=== PATIENT | female | born 1955 | race Caucasian/White ===

== ENCOUNTER 2016-08-30 08:36 | Observation (INO) | payer OTHER ==
[~2016-08-30] VITALS: Ht 157.5 cm; Wt 112.2 kg
[~2016-08-30 08:36] MED LIST: CALCIUM 500 +1 EACH PO; CLARITIN10 MG PO; COLACE100 MG PO; COUMADIN,JANTO7.5 MG PO; COUMADIN,JANTOV10 MG PO; COUMADIN1 MG PO; COUMADIN5 MG PO; COUMADIN6 MG PO; DUONEB 2.5-0.5 M3 ML AEROSOL; FLEXERIL10 MG PO; HYDROCODON-ACE1 EAC7 PO; KEFLEX500 MG PO; LIDOCAINE700 MG TD; LIPITOR20 MG PO; LOVENOX100 MG/1 M PO; METFORMIN HCL500 MG PO; MUPIROCIN22 GM TP; ONCE DAILY1 EACH PO; PRAVACHOL20 MG PO; PREDNISONE20 MG PO; PRILOSEC20 MG PO; PRINIVIL5 MG PO; PROTONIX40 MG PO; ROBITUSSIN AC,T10 ML PO; TESSALON200 MG PO; TRAMADOL HCL50 MG PO; TYLENOL EXTRA500 MG PO; TYLENOL WITH C1 EACH PO; Tylenol Regular Stre PO; VALIUM5 MG PO; VENTOLIN HFA18 GM IH; VICODIN 5-3001 EACH PO; ZITHROMAX Z-PA250 MG PO
[2016-08-30 10:14] LABS: EOSINOPHIL (%) 1.2 % (0-5); EOSINOPHIL COUNT 0.2 K/uL (0-0.3); HEMATOCRIT 41.5 % (36.0-46.0); IMMATURE GRANULOCYTE (%) 0.2 % (0.0-0.7); IMMATURE GRANULOCYTE COUNT 0.2 K/uL; LYMPHOCYTE COUNT 4.1 K/uL (1.0-2.8); MCH 28.7 PG (29.0-34.0); MCHC 32.8 G/DL (30.0-36.0); MCV 87.6 FL (83-99); MEAN PLAT.VOLUME 9.8 uM^3 (9.5-12.4); MONOCYTE (%) 9.7 % (3-12); MONOCYTE COUNT 1.2 K/uL (0-0.8); NEUTROPHIL (%) 56.2 % (45-76); NEUTROPHIL COUNT 7.2 K/uL (1.8-6.4); PLATELET COUNT 283 K/uL (156-360); RBC DIS.WIDTH-CV 14.7 % (11.8-14.6); RBC DIS.WIDTH-SD 46.6 % (39-53); RED BLOOD COUNT 4.74 M/uL (3.80-5.20); WHITE BLOOD COUNT 12.7 K/uL (4.1-10.2)
[2016-08-30 10:26] LABS: CHLORIDE 107 mEq/L (99-109); POTASSIUM 3.9 mEq/L (3.7-5.4); SODIUM 141 mEq/L (136-147)
[2016-08-30 10:28] LABS: GLUCOSE 142 mg/dL (70-99)
[2016-08-30 10:29] LABS: ANION GAP 11 MEQ/L (2-14)
[2016-08-30 10:30] LABS: TOTAL BILIRUBIN 1.1 mg/dL (0.0-1.0)
[2016-08-30 10:31] LABS: ALKALINE PHOSPHATASE 61 IU/L (3-129)
[2016-08-30 10:32] LABS: GFR ESTIMATE (CALCULATED) > 59 mL/min/
[2016-08-30 10:33] LABS: UREA NITROGEN (BUN) 10 mg/dL (9-23)
[2016-08-30 10:34] LABS: TROP-I INTERPRETATION NEGATIVE; TROPONIN-I < 0.01 ng/mL (0.0-0.30)
[2016-08-30 12:42] VITALS: BP 103/60
[2016-08-30 12:53] LABS: INTER. NORMALIZED RATIO 1.3; PROTHROMBIN TIME 12.9 (9.2-11.2)
[2016-08-30 15:37] VITALS: BP 122/60
[2016-08-30 16:22] VITALS: BP 104/52
[2016-08-30 17:21] LABS: TROP-I INTERPRETATION NEGATIVE; TROPONIN-I < 0.01 ng/mL (0.0-0.30)
[2016-08-30 17:22] LABS: POINT-OF-CARE METER ID UU14162513
[2016-08-30] MEDS ORDERED: MAG-AL PLUS SUS30 ML PO (19:00)
[2016-08-30] MEDS ORDERED: AZITHROMYCIN500 M1 PO (19:10)
[2016-08-30 21:43] LABS: POINT-OF-CARE METER ID UU13113831
[2016-08-30 22:46] LABS: TROP-I INTERPRETATION NEGATIVE; TROPONIN-I < 0.01 ng/mL (0.0-0.30)
== END 2016-08-30 22:23 | disposition home or self-care (01) ==
LOC: EME 08:36 → EDOF 11:27 → 5WEST 12:32
PROVIDERS: Emergency Medicine; Internal Medicine
DX: R07.89 Other chest pain (principal); J40 Bronchitis, not specified as acute or chronic; K21.9 Gastro-esophageal reflux disease without esophagitis; E11.9 Type 2 diabetes mellitus without complications; I10 Essential (primary) hypertension; I25.10 Atherosclerotic heart disease of native coronary artery without angina pectoris; E78.5 Hyperlipidemia, unspecified; E66.9 Obesity, unspecified; Z68.42 Body mass index [BMI] 45.0-49.9, adult; Z86.711 Personal history of pulmonary embolism; Z86.718 Personal history of other venous thrombosis and embolism; Z79.01 Long term (current) use of anticoagulants
CPT/HCPCS: 71020; 80053; 81003; 82948; 83690; 84484; 85025; 85610; 93005; 94640; 94640 76; 99202; 99281; 99285; G0378; J1815; J1885

== ENCOUNTER 2016-09-25 18:04 | Emergency (ER) | payer OTHER ==
[~2016-09-25] VITALS: Ht 157.5 cm; Wt 113.4 kg
[~2016-09-25 18:04] MED LIST changes: +AZITHROMYCIN500 M1 PO; +MAG-AL PLUS SUS30 ML PO
[2016-09-25 18:52] LABS: HEMATOCRIT 43.2 % (36.0-46.0); MCHC 32.6 G/DL (30.0-36.0); MCV 88.9 FL (83-99); MEAN PLAT.VOLUME 9.3 uM^3 (9.5-12.4); PLATELET COUNT 339 K/uL (156-360); RBC DIS.WIDTH-CV 14.4 % (11.8-14.6); RBC DIS.WIDTH-SD 46.7 % (39-53); RED BLOOD COUNT 4.86 M/uL (3.80-5.20); WHITE BLOOD COUNT 15.6 K/uL (4.1-10.2)
[2016-09-25 19:09] LABS: CHLORIDE 104 mEq/L (99-109); POTASSIUM 4.3 mEq/L (3.7-5.4); SODIUM 139 mEq/L (136-147)
[2016-09-25 19:10] LABS: GLUCOSE 106 mg/dL (70-99)
[2016-09-25 19:12] LABS: ANION GAP 10 MEQ/L (2-14)
[2016-09-25 19:14] LABS: GFR ESTIMATE (CALCULATED) > 59 mL/min/
[2016-09-25 19:15] LABS: UREA NITROGEN (BUN) 14 mg/dL (9-23)
[2016-09-25 20:06] LABS: ADD MIUA? YES; BILIRUBIN NEGATIVE; BLOOD SMALL; COLOR STRAW ((YELLOW)); GLUCOSE (STRIP) NEGATIVE; KETONES NEGATIVE; LEUKOCYTES NEGATIVE; NITRITE NEGATIVE; PROTEIN (STRIP) NEGATIVE; SPECIFIC GRAVITY 1.009 (1.000-1.030); UROBILINOGEN 0.2 MG/DL (0.2-1.0)
[2016-09-25 20:10] LABS: BACTERIA NONE SEEN /HPF; EPITHELIAL CELLS RARE /HPF; MUCUS TRACE /LPF; RED BLOOD CELLS 0-5 /HPF (0-5); UCUL ADDED? NO; WHITE BLOOD CELLS 0-5 /HPF (0-5)
[2016-09-25 20:21] LABS: CASTS NONE SEEN /LPF; CRYSTALS NONE SEEN
[2016-09-25] MEDS ORDERED: ULTRAM50 MG PO (23:09)
[2016-09-25] MEDS ORDERED: ZOFRAN ODT8 MG PO (23:09)
[2016-09-25 23:29] VITALS: BP 143/79
== END 2016-09-25 23:31 | disposition home or self-care (01) ==
LOC: EME 18:04
DX: R10.31 Right lower quadrant pain (principal); E78.5 Hyperlipidemia, unspecified; I10 Essential (primary) hypertension; K21.9 Gastro-esophageal reflux disease without esophagitis; Z88.1 Allergy status to other antibiotic agents; Z88.2 Allergy status to sulfonamides; Z88.6 Allergy status to analgesic agent
CPT/HCPCS: 74177; 80048; 81003; 85025; 85027; 99281; 99284

== ENCOUNTER 2016-10-11 18:32 | Emergency (ER) | payer OTHER ==
[~2016-10-11] VITALS: Ht 157.5 cm; Wt 111.4 kg
[~2016-10-11 18:32] MED LIST changes: +ULTRAM50 MG PO; +ZOFRAN ODT8 MG PO
[2016-10-11 19:17] LABS: HEMATOCRIT 41.9 % (36.0-46.0); MCH 28.8 PG (29.0-34.0); MCHC 32.7 G/DL (30.0-36.0); MEAN PLAT.VOLUME 9.6 uM^3 (9.5-12.4); PLATELET COUNT 335 K/uL (156-360); RBC DIS.WIDTH-CV 13.9 % (11.8-14.6); RBC DIS.WIDTH-SD 45.3 % (39-53); RED BLOOD COUNT 4.76 M/uL (3.80-5.20); WHITE BLOOD COUNT 13.9 K/uL (4.1-10.2)
[2016-10-11 19:38] LABS: CHLORIDE 108 mEq/L (99-109); POTASSIUM 3.9 mEq/L (3.7-5.4); SODIUM 142 mEq/L (136-147)
[2016-10-11 19:40] LABS: GLUCOSE 132 mg/dL (70-99)
[2016-10-11 19:41] LABS: ANION GAP 12 MEQ/L (2-14)
[2016-10-11 19:42] LABS: TOTAL BILIRUBIN 0.5 mg/dL (0.0-1.0)
[2016-10-11 19:43] LABS: ALKALINE PHOSPHATASE 70 IU/L (3-129)
[2016-10-11 19:44] LABS: GFR ESTIMATE (CALCULATED) > 59 mL/min/
[2016-10-11 19:45] LABS: UREA NITROGEN (BUN) 13 mg/dL (9-23)
[2016-10-11 19:52] LABS: ADD MIUA? YES; BILIRUBIN NEGATIVE; BLOOD SMALL; COLOR YELLOW ((YELLOW)); GLUCOSE (STRIP) NEGATIVE; KETONES NEGATIVE; LEUKOCYTES NEGATIVE; NITRITE NEGATIVE; PROTEIN (STRIP) NEGATIVE; SPECIFIC GRAVITY 1.021 (1.000-1.030); UROBILINOGEN 0.2 MG/DL (0.2-1.0)
[2016-10-11 19:59] LABS: BACTERIA NONE SEEN /HPF; EPITHELIAL CELLS RARE /HPF; MUCUS TRACE /LPF; RED BLOOD CELLS 0-5 /HPF (0-5); UCUL ADDED? NO; WHITE BLOOD CELLS 0-5 /HPF (0-5)
[2016-10-11 21:03] LABS: LIPASE 26 U/L (1.0-51.0)
[2016-10-12 00:36] VITALS: BP 130/67
== END 2016-10-12 00:41 | disposition home or self-care (01) ==
LOC: EME 18:32
DX: K59.00 Constipation, unspecified (principal); R10.9 Unspecified abdominal pain; E11.9 Type 2 diabetes mellitus without complications; E78.5 Hyperlipidemia, unspecified; I10 Essential (primary) hypertension; Z86.711 Personal history of pulmonary embolism; Z86.718 Personal history of other venous thrombosis and embolism; Z79.01 Long term (current) use of anticoagulants; Z79.84 Long term (current) use of oral hypoglycemic drugs
CPT/HCPCS: 74177; 80053; 81003; 83690; 85027; 99281; 99285; J7030

== ENCOUNTER 2016-10-16 14:20 | Emergency (ER) | payer OTHER ==
[~2016-10-16] VITALS: Ht 157.5 cm; Wt 119.4 kg
[2016-10-16 15:16] LABS: HEMATOCRIT 43.8 % (36.0-46.0); MCH 28.7 PG (29.0-34.0); MCHC 32.4 G/DL (30.0-36.0); MCV 88.7 FL (83-99); MEAN PLAT.VOLUME 9.4 uM^3 (9.5-12.4); PLATELET COUNT 338 K/uL (156-360); RBC DIS.WIDTH-CV 14.1 % (11.8-14.6); RBC DIS.WIDTH-SD 45.8 % (39-53); RED BLOOD COUNT 4.94 M/uL (3.80-5.20); WHITE BLOOD COUNT 14.1 K/uL (4.1-10.2)
[2016-10-16 15:26] LABS: CHLORIDE 105 mEq/L (99-109)
[2016-10-16 15:27] LABS: SODIUM 141 mEq/L (136-147)
[2016-10-16 15:29] LABS: GLUCOSE 98 mg/dL (70-99)
[2016-10-16 15:30] LABS: ANION GAP 10 MEQ/L (2-14)
[2016-10-16 15:32] LABS: ALKALINE PHOSPHATASE 62 IU/L (3-129); GFR ESTIMATE (CALCULATED) > 59 mL/min/
[2016-10-16 15:34] LABS: UREA NITROGEN (BUN) 11 mg/dL (9-23)
[2016-10-16 15:37] LABS: TOTAL BILIRUBIN 0.7 mg/dL (0.0-1.0)
[2016-10-16 17:37] LABS: ADD MIUA? YES; BILIRUBIN NEGATIVE; BLOOD MODERATE; COLOR YELLOW ((YELLOW)); GLUCOSE (STRIP) NEGATIVE; KETONES NEGATIVE; LEUKOCYTES NEGATIVE; NITRITE NEGATIVE; PROTEIN (STRIP) NEGATIVE; SPECIFIC GRAVITY 1.021 (1.000-1.030); UROBILINOGEN 0.2 MG/DL (0.2-1.0)
[2016-10-16 17:47] LABS: BACTERIA RARE /HPF; EPITHELIAL CELLS RARE /HPF; MUCUS TRACE /LPF; UCUL ADDED? NO; WHITE BLOOD CELLS 0-5 /HPF (0-5)
[2016-10-16 17:48] LABS: AMPHETAMINE NEGATIVE (500 ng/mL); BARBITURATES NEGATIVE (200 ng/mL); BENZODIAZEPINES NEGATIVE (150 ng/mL); COCAINE NEGATIVE (150 ng/mL); INTERNAL CONTROLS VALID? YES; METHADONE NEGATIVE (200 ng/mL); METHAMPHETAMINE NEGATIVE (500 ng/mL); OPIATES (MORPHINE) NEGATIVE (100 ng/mL); OXYCODONE NEGATIVE (100 ng/mL); PHENCYCLIDINE NEGATIVE (25 ng/mL); PROPOXYPHENE NEGATIVE (300 ng/mL); THC CANNABINOIDS NEGATIVE (50 ng/mL); TRICYCLIC ANTIDEPRESSANTS NEGATIVE (300 ng/mL)
[2016-10-16] MEDS ORDERED: MIRALAX255 GM PO (19:32)
[2016-10-16] MEDS ORDERED: ULTRAM50 MG PO (19:33)
[2016-10-16 19:53] VITALS: BP 125/71
== END 2016-10-16 19:57 | disposition home or self-care (01) ==
LOC: EME 14:20
PROVIDERS: Nurse Practitioner Family
DX: K59.00 Constipation, unspecified (principal); R10.30 Lower abdominal pain, unspecified; R31.9 Hematuria, unspecified; D72.829 Elevated white blood cell count, unspecified; I10 Essential (primary) hypertension; E78.5 Hyperlipidemia, unspecified; Z86.711 Personal history of pulmonary embolism; Z86.718 Personal history of other venous thrombosis and embolism; Z79.01 Long term (current) use of anticoagulants; Z90.49 Acquired absence of other specified parts of digestive tract; Z90.710 Acquired absence of both cervix and uterus
CPT/HCPCS: 74000; 80053; 81003; 85027; 99281; 99284; J2405; J3010

== ENCOUNTER 2016-10-26 11:57 | Emergency (ER) | payer OTHER ==
[~2016-10-26] VITALS: Ht 157.5 cm; Wt 114.3 kg
[~2016-10-26 11:57] MED LIST changes: +MIRALAX255 GM PO
[2016-10-26 13:05] LABS: ADD MIUA? YES; BILIRUBIN NEGATIVE; BLOOD MODERATE; COLOR STRAW ((YELLOW)); GLUCOSE (STRIP) NEGATIVE; KETONES NEGATIVE; LEUKOCYTES MODERATE; NITRITE NEGATIVE; PROTEIN (STRIP) NEGATIVE; SPECIFIC GRAVITY 1.006 (1.000-1.030); UROBILINOGEN 0.2 MG/DL (0.2-1.0)
[2016-10-26 13:09] LABS: BACTERIA RARE /HPF; EPITHELIAL CELLS RARE /HPF; MUCUS TRACE /LPF; RED BLOOD CELLS 0-5 /HPF (0-5); UCUL ADDED? NO; WHITE BLOOD CELLS 20-30 /HPF (0-5)
[2016-10-26 13:39] LABS: HEMATOCRIT 43.9 % (36.0-46.0); MCH 28.4 PG (29.0-34.0); MCHC 32.1 G/DL (30.0-36.0); MCV 88.5 FL (83-99); PLATELET COUNT 327 K/uL (156-360); RBC DIS.WIDTH-CV 13.8 % (11.8-14.6); RBC DIS.WIDTH-SD 44.3 % (39-53); RED BLOOD COUNT 4.96 M/uL (3.80-5.20); WHITE BLOOD COUNT 12.4 K/uL (4.1-10.2)
[2016-10-26 13:44] LABS: CHLORIDE 103 mEq/L (99-109); POTASSIUM 4.1 mEq/L (3.7-5.4); SODIUM 139 mEq/L (136-147)
[2016-10-26 13:46] LABS: GLUCOSE 92 mg/dL (70-99)
[2016-10-26 13:48] LABS: ANION GAP 10 MEQ/L (2-14); TOTAL BILIRUBIN 0.9 mg/dL (0.0-1.0)
[2016-10-26 13:50] LABS: ALKALINE PHOSPHATASE 55 IU/L (3-129); GFR ESTIMATE (CALCULATED) > 59 mL/min/
[2016-10-26 13:51] LABS: UREA NITROGEN (BUN) 10 mg/dL (9-23)
[2016-10-26] MEDS ORDERED: MIRALAX17 GM PO (18:39)
[2016-10-26] MEDS ORDERED: CIPRO500 MG PO (18:39)
[2016-10-26 19:27] VITALS: BP 107/80
== END 2016-10-26 19:29 | disposition home or self-care (01) ==
LOC: EME 11:57
DX: N39.0 Urinary tract infection, site not specified (principal); K59.00 Constipation, unspecified; I10 Essential (primary) hypertension; J45.909 Unspecified asthma, uncomplicated; G89.29 Other chronic pain; E11.9 Type 2 diabetes mellitus without complications; K21.9 Gastro-esophageal reflux disease without esophagitis; E78.5 Hyperlipidemia, unspecified; Z86.711 Personal history of pulmonary embolism; Z86.718 Personal history of other venous thrombosis and embolism; Z79.01 Long term (current) use of anticoagulants
CPT/HCPCS: 74020; 80053; 81003; 85027; 99281; 99285; J0696; J7050

== ENCOUNTER 2016-11-13 14:01 | Emergency (ER) | payer OTHER ==
[~2016-11-13] VITALS: Ht 157.5 cm; Wt 114.7 kg
[~2016-11-13 14:01] MED LIST changes: +CIPRO500 MG PO; +MIRALAX17 GM PO
[2016-11-13 16:30] LABS: ADD MIUA? YES; BILIRUBIN NEGATIVE; BLOOD SMALL; COLOR STRAW ((YELLOW)); GLUCOSE (STRIP) NEGATIVE; KETONES NEGATIVE; LEUKOCYTES NEGATIVE; NITRITE NEGATIVE; PROTEIN (STRIP) NEGATIVE; SPECIFIC GRAVITY 1.002 (1.000-1.030); UROBILINOGEN 0.2 MG/DL (0.2-1.0)
[2016-11-13 16:32] LABS: BACTERIA NONE SEEN /HPF; EPITHELIAL CELLS RARE /HPF; MUCUS NONE SEEN /LPF; RED BLOOD CELLS 0-5 /HPF (0-5); WHITE BLOOD CELLS NONE SEEN /HPF (0-5)
[2016-11-13 16:36] LABS: HEMATOCRIT 42.9 % (36.0-46.0); MCH 29.2 PG (29.0-34.0); MCHC 32.6 G/DL (30.0-36.0); MCV 89.4 FL (83-99); MEAN PLAT.VOLUME 9.4 uM^3 (9.5-12.4); PLATELET COUNT 302 K/uL (156-360); RBC DIS.WIDTH-CV 13.2 % (11.8-14.6); RBC DIS.WIDTH-SD 43.8 % (39-53); WHITE BLOOD COUNT 10.2 K/uL (4.1-10.2)
[2016-11-13 16:44] LABS: CHLORIDE 107 mEq/L (99-109); POTASSIUM 4.5 mEq/L (3.7-5.4); SODIUM 141 mEq/L (136-147)
[2016-11-13 16:46] LABS: GLUCOSE 92 mg/dL (70-99)
[2016-11-13 16:47] LABS: ANION GAP 7 MEQ/L (2-14)
[2016-11-13 16:48] LABS: TOTAL BILIRUBIN 0.7 mg/dL (0.0-1.0)
[2016-11-13 16:50] LABS: ALKALINE PHOSPHATASE 55 IU/L (3-129); GFR ESTIMATE (CALCULATED) > 59 mL/min/
[2016-11-13 16:51] LABS: UREA NITROGEN (BUN) 9 mg/dL (9-23)
[2016-11-13 16:53] LABS: LIPASE 14 U/L (1.0-51.0)
[2016-11-13] MEDS ORDERED: GOLYTELY SOLU4000 ML PO (16:55)
[2016-11-13 17:20] VITALS: BP 98/57
== END 2016-11-13 17:21 | disposition home or self-care (01) ==
LOC: EME 14:01
PROVIDERS: Physician Assistant
DX: K59.00 Constipation, unspecified (principal); R10.84 Generalized abdominal pain; J45.909 Unspecified asthma, uncomplicated; E11.9 Type 2 diabetes mellitus without complications; E78.5 Hyperlipidemia, unspecified; I10 Essential (primary) hypertension; K21.9 Gastro-esophageal reflux disease without esophagitis
CPT/HCPCS: 74176; 80053; 81003; 83690; 85027; 99281; 99285; J2405; J7030

== ENCOUNTER 2016-12-06 12:04 | Emergency (ER) | payer OTHER ==
[~2016-12-06] VITALS: Ht 157.5 cm; Wt 112.9 kg
[~2016-12-06 12:04] MED LIST changes: +GOLYTELY SOLU4000 ML PO
[2016-12-06 13:27] LABS: HEMATOCRIT 40.5 % (36.0-46.0); MCH 29.2 PG (29.0-34.0); MCHC 33.1 G/DL (30.0-36.0); MCV 88.2 FL (83-99); MEAN PLAT.VOLUME 9.7 uM^3 (9.5-12.4); PLATELET COUNT 277 K/uL (156-360); RBC DIS.WIDTH-CV 13.2 % (11.8-14.6); RBC DIS.WIDTH-SD 42.5 % (39-53); RED BLOOD COUNT 4.59 M/uL (3.80-5.20); WHITE BLOOD COUNT 10.7 K/uL (4.1-10.2)
[2016-12-06 14:05] LABS: CHLORIDE 107 mEq/L (99-109); POTASSIUM 4.2 mEq/L (3.7-5.4); SODIUM 142 mEq/L (136-147)
[2016-12-06 14:07] LABS: GLUCOSE 96 mg/dL (70-99)
[2016-12-06 14:08] LABS: ANION GAP 10 MEQ/L (2-14)
[2016-12-06 14:09] LABS: TOTAL BILIRUBIN 0.8 mg/dL (0.0-1.0)
[2016-12-06 14:10] LABS: ALKALINE PHOSPHATASE 58 IU/L (3-129)
[2016-12-06 14:11] LABS: GFR ESTIMATE (CALCULATED) > 59 mL/min/
[2016-12-06 14:12] LABS: UREA NITROGEN (BUN) 13 mg/dL (9-23)
[2016-12-06 14:14] LABS: LIPASE 21 U/L (1.0-51.0)
[2016-12-06 15:40] LABS: ADD MIUA? YES; BILIRUBIN NEGATIVE; BLOOD SMALL; COLOR YELLOW ((YELLOW)); GLUCOSE (STRIP) NEGATIVE; KETONES NEGATIVE; LEUKOCYTES NEGATIVE; NITRITE NEGATIVE; PROTEIN (STRIP) NEGATIVE; UROBILINOGEN 0.2 MG/DL (0.2-1.0)
[2016-12-06 15:44] LABS: BACTERIA NONE SEEN /HPF; EPITHELIAL CELLS RARE /HPF; MUCUS TRACE /LPF; RED BLOOD CELLS 0-5 /HPF (0-5); UCUL ADDED? NO; WHITE BLOOD CELLS 0-5 /HPF (0-5)
[2016-12-06 16:19] LABS: SPECIFIC GRAVITY 1.089 (1.000-1.030)
[2016-12-06] MEDS ORDERED: OMEPRAZOLE40 M1 PO (16:26)
[2016-12-06] MEDS ORDERED: BENTYL20 MG PO (16:27)
[2016-12-06 16:46] VITALS: BP 126/72
== END 2016-12-06 16:47 | disposition home or self-care (01) ==
LOC: EME 12:04
DX: R10.31 Right lower quadrant pain (principal); G89.29 Other chronic pain; Z86.711 Personal history of pulmonary embolism; Z79.01 Long term (current) use of anticoagulants; J45.909 Unspecified asthma, uncomplicated; E11.9 Type 2 diabetes mellitus without complications; E78.5 Hyperlipidemia, unspecified; I10 Essential (primary) hypertension; K21.9 Gastro-esophageal reflux disease without esophagitis; Z90.49 Acquired absence of other specified parts of digestive tract
CPT/HCPCS: 74177; 80053; 81003; 83690; 85027; 99281; 99285; J2405; J3010; J7030

== ENCOUNTER 2017-02-23 08:53 | Observation (INO) | payer OTHER ==
[~2017-02-23] VITALS: Ht 157.5 cm; Wt 111.4 kg
[~2017-02-23 08:53] MED LIST changes: +BENTYL20 MG PO; +OMEPRAZOLE40 M1 PO
[2017-02-23 09:36] LABS: HEMATOCRIT 39.9 % (36.0-46.0); MCH 28.5 PG (29.0-34.0); MCHC 33.1 G/DL (30.0-36.0); MCV 86.2 FL (83-99); MEAN PLAT.VOLUME 9.9 uM^3 (9.5-12.4); PLATELET COUNT 269 K/uL (156-360); RBC DIS.WIDTH-CV 14.1 % (11.8-14.6); RBC DIS.WIDTH-SD 44.8 % (39-53); RED BLOOD COUNT 4.63 M/uL (3.80-5.20); WHITE BLOOD COUNT 10.2 K/uL (4.1-10.2)
[2017-02-23 09:43] LABS: CHLORIDE 108 mEq/L (99-109); POTASSIUM 3.8 mEq/L (3.7-5.4); SODIUM 140 mEq/L (136-147)
[2017-02-23 09:47] LABS: ANION GAP 9 MEQ/L (2-14)
[2017-02-23 09:49] LABS: GFR ESTIMATE (CALCULATED) > 59 mL/min/
[2017-02-23 09:52] LABS: GLUCOSE 114 mg/dL (70-99)
[2017-02-23 09:55] LABS: ALKALINE PHOSPHATASE 70 IU/L (3-129); TROP-I INTERPRETATION NEGATIVE; TROPONIN-I 0.01 ng/mL (0.0-0.30)
[2017-02-23 09:57] LABS: UREA NITROGEN (BUN) 14 mg/dL (9-23)
[2017-02-23 11:43] LABS: INTER. NORMALIZED RATIO 2.4
[2017-02-23] MEDS ORDERED: METFORMIN HCL500 MG PO (11:57)
[2017-02-23 12:48] VITALS: BP 121/62
[2017-02-23 15:25] VITALS: BP 121/79
[2017-02-23 17:01] LABS: POINT-OF-CARE METER ID UU13113700
[2017-02-23 17:01] LABS: TROP-I INTERPRETATION NEGATIVE; TROPONIN-I < 0.01 ng/mL (0.0-0.30)
[2017-02-23 19:00] VITALS: BP 136/78
[2017-02-23 22:11] LABS: TROP-I INTERPRETATION NEGATIVE; TROPONIN-I < 0.01 ng/mL (0.0-0.30)
[2017-02-24] VITALS: BP 115/69
[2017-02-24 04:00] VITALS: BP 108/55
[2017-02-24 07:19] LABS: INTER. NORMALIZED RATIO 1.9; PROTHROMBIN TIME 21.7 SEC (10.2-12.9)
[2017-02-24 08:18] VITALS: BP 94/96
== END 2017-02-24 11:26 | disposition home or self-care (01) ==
LOC: EME 08:53 → EDOF 10:25 → ENRESERV 10:32 → EDOF 10:36 → ENRESERV 10:44 → 5WEST 12:22 → ENPENDDIS 02-24 → 5WEST 02-24 11:26
PROVIDERS: Internal Medicine
DX: R07.89 Other chest pain (principal); I10 Essential (primary) hypertension; E11.9 Type 2 diabetes mellitus without complications; Z86.711 Personal history of pulmonary embolism; R10.13 Epigastric pain; E78.5 Hyperlipidemia, unspecified; K21.9 Gastro-esophageal reflux disease without esophagitis; Z86.718 Personal history of other venous thrombosis and embolism; Z79.01 Long term (current) use of anticoagulants; Z98.890 Other specified postprocedural states; Z90.49 Acquired absence of other specified parts of digestive tract; Z88.2 Allergy status to sulfonamides; Z88.5 Allergy status to narcotic agent; Z88.6 Allergy status to analgesic agent; Z91.09 Other allergy status, other than to drugs and biological substances
CPT/HCPCS: 71020; 80048; 80053; 82948; 84484; 85027; 85610; 93005; 94640; 94640 76; 94760; 99202; 99281; 99285; G0378; J3010; J7120

== ENCOUNTER 2017-02-27 11:43 | Emergency (ER) | payer OTHER ==
[~2017-02-27] VITALS: Ht 157.5 cm; Wt 111.1 kg
[2017-02-27 13:35] LABS: HEMATOCRIT 39.7 % (36.0-46.0); MCH 28.3 PG (29.0-34.0); MCHC 33.2 G/DL (30.0-36.0); PLATELET COUNT 270 K/uL (156-360); RBC DIS.WIDTH-CV 14.1 % (11.8-14.6); RBC DIS.WIDTH-SD 43.5 % (39-53); RED BLOOD COUNT 4.67 M/uL (3.80-5.20); WHITE BLOOD COUNT 9.4 K/uL (4.1-10.2)
[2017-02-27 13:41] LABS: INTER. NORMALIZED RATIO 2.6; PROTHROMBIN TIME 29.2 SEC (10.2-12.9)
[2017-02-27 13:44] LABS: PTT 44.5 SEC (25-37)
[2017-02-27 13:46] LABS: CHLORIDE 108 mEq/L (99-109); POTASSIUM 3.8 mEq/L (3.7-5.4); SODIUM 139 mEq/L (136-147)
[2017-02-27 13:48] LABS: GLUCOSE 111 mg/dL (70-99)
[2017-02-27 13:49] LABS: ANION GAP 8 MEQ/L (2-14)
[2017-02-27 13:52] LABS: GFR ESTIMATE (CALCULATED) > 59 mL/min/; UREA NITROGEN (BUN) 10 mg/dL (9-23)
[2017-02-27 13:57] LABS: TROP-I INTERPRETATION NEGATIVE; TROPONIN-I < 0.01 ng/mL (0.0-0.30)
[2017-02-27 16:48] VITALS: BP 107/64
== END 2017-02-27 16:48 | disposition home or self-care (01) ==
LOC: EME 11:43
PROVIDERS: Physician Assistant
DX: R07.9 Chest pain, unspecified (principal); E11.9 Type 2 diabetes mellitus without complications; I10 Essential (primary) hypertension; E78.5 Hyperlipidemia, unspecified; Z79.84 Long term (current) use of oral hypoglycemic drugs; Z79.01 Long term (current) use of anticoagulants; Z86.718 Personal history of other venous thrombosis and embolism; Z86.711 Personal history of pulmonary embolism; Z95.828 Presence of other vascular implants and grafts; K21.9 Gastro-esophageal reflux disease without esophagitis; Z88.2 Allergy status to sulfonamides; Z88.6 Allergy status to analgesic agent
CPT/HCPCS: 71020; 71275; 80048; 84484; 85027; 85610; 85730; 93005; 99281; 99285; J3010; J7030

== ENCOUNTER 2017-09-27 11:16 | Observation (INO) | payer OTHER ==
[~2017-09-27] VITALS: Ht 157.5 cm; Wt 106.8 kg
[~2017-09-27 11:16] MED LIST changes: -PRAVACHOL20 MG PO; +PRAVACHOL40 MG PO
[2017-09-27 12:16] LABS: HEMATOCRIT 40.8 % (36.0-46.0); HEMOGLOBIN 13.7 G/DL (11.9-15.5); MCH 29.3 PG (29.0-34.0); MCHC 33.6 G/DL (30.0-36.0); MCV 87.2 FL (83-99); PLATELET COUNT 298 K/uL (156-360); RBC DIS.WIDTH-CV 13.8 % (11.8-14.6); RBC DIS.WIDTH-SD 43.9 % (39-53); RED BLOOD COUNT 4.68 M/uL (3.80-5.20); WHITE BLOOD COUNT 10.7 K/uL (4.1-10.2)
[2017-09-27 12:20] LABS: CHLORIDE 104 mEq/L (99-109); POTASSIUM 4.2 mEq/L (3.7-5.4); SODIUM 141 mEq/L (136-147)
[2017-09-27 12:22] LABS: GLUCOSE 100 mg/dL (70-99)
[2017-09-27 12:26] LABS: CREATININE 0.8 mg/dL (0.6-1.3); GFR ESTIMATE (CALCULATED) > 59 mL/min/
[2017-09-27 12:27] LABS: UREA NITROGEN (BUN) 11 mg/dL (9-23)
[2017-09-27 12:34] LABS: TROP-I INTERPRETATION NEGATIVE; TROPONIN-I < 0.01 ng/mL (0.0-0.30)
[2017-09-27 14:18] LABS: PTT 52.5 SEC (25-37)
[2017-09-27 14:22] LABS: INTER. NORMALIZED RATIO 3.5
[2017-09-27] MEDS ORDERED: LEXAPRO10 MG PO (18:12)
[2017-09-27 19:02] LABS: HDL CHOLESTEROL 51 MG/DL (Desirable>=50); LDL CHOLESTEROL 88 mg/dL (Desirable<100); NON-HDL CHOLESTEROL 125 mg/dL (Desirable<160); TOTAL CHOLESTEROL 176 mg/dL (Desirable<200); TRIGLYCERIDES 187 MG/DL (Normal: <150)
[2017-09-27 21:40] VITALS: BP 111/59
[2017-09-27 23:40] VITALS: BP 97/53
[2017-09-28 00:59] LABS: TROP-I INTERPRETATION NEGATIVE; TROPONIN-I < 0.01 ng/mL (0.0-0.30)
[2017-09-28 04:17] VITALS: BP 111/55
[2017-09-28 05:48] LABS: HEMATOCRIT 39.2 % (36.0-46.0); MCH 29.1 PG (29.0-34.0); MCHC 33.2 G/DL (30.0-36.0); MCV 87.7 FL (83-99); PLATELET COUNT 248 K/uL (156-360); RBC DIS.WIDTH-CV 14.1 % (11.8-14.6); RBC DIS.WIDTH-SD 45.1 % (39-53); RED BLOOD COUNT 4.47 M/uL (3.80-5.20); WHITE BLOOD COUNT 8.6 K/uL (4.1-10.2)
[2017-09-28 05:52] LABS: INTER. NORMALIZED RATIO 3.1
[2017-09-28 06:12] LABS: TROP-I INTERPRETATION NEGATIVE; TROPONIN-I < 0.01 ng/mL (0.0-0.30)
[2017-09-28 06:13] LABS: CHLORIDE 104 MEQ/L (99-109); CREATININE 0.6 MG/DL (0.6-1.3); GFR ESTIMATE (CALCULATED) > 59 mL/min/; GLUCOSE 119 mg/dL (70-99); POTASSIUM 4.1 MEQ/L (3.7-5.4); SODIUM 139 MEQ/L (136-147); UREA NITROGEN (BUN) 10 mg/dL (9-23)
[2017-09-28 07:21] VITALS: BP 88/54
[2017-09-28 07:45] VITALS: BP 90/54
== END 2017-09-28 10:22 | disposition home or self-care (01) ==
LOC: EME 11:16 → 5WEST 18:02 → EDOF 18:02 → ENRESERV 18:49 → 5WEST 21:11
PROVIDERS: Internal Medicine
DX: R07.9 Chest pain, unspecified (principal); R20.0 Anesthesia of skin; R20.2 Paresthesia of skin; R79.1 Abnormal coagulation profile; E11.9 Type 2 diabetes mellitus without complications; E78.5 Hyperlipidemia, unspecified; I10 Essential (primary) hypertension; K21.9 Gastro-esophageal reflux disease without esophagitis; J45.909 Unspecified asthma, uncomplicated; Z86.711 Personal history of pulmonary embolism; Z86.718 Personal history of other venous thrombosis and embolism; Z79.01 Long term (current) use of anticoagulants; I25.10 Atherosclerotic heart disease of native coronary artery without angina pectoris; Z98.890 Other specified postprocedural states; M19.90 Unspecified osteoarthritis, unspecified site; K44.9 Diaphragmatic hernia without obstruction or gangrene; M51.36 Other intervertebral disc degeneration, lumbar region; Z88.2 Allergy status to sulfonamides; Z88.5 Allergy status to narcotic agent; Z91.048 Other nonmedicinal substance allergy status; Z90.49 Acquired absence of other specified parts of digestive tract; Z90.710 Acquired absence of both cervix and uterus; Z82.49 Family history of ischemic heart disease and other diseases of the circulatory system; Z82.3 Family history of stroke; Z79.84 Long term (current) use of oral hypoglycemic drugs
CPT/HCPCS: 71046; 71275; 80048; 80061; 82948; 84484; 85027; 85610; 85730; 93005; 99202; 99281; 99285; G0378

== ENCOUNTER 2018-01-07 16:52 | Emergency (ER) | payer OTHER ==
[~2018-01-07] VITALS: Ht 157.5 cm; Wt 114.0 kg
[~2018-01-07 16:52] MED LIST changes: +LEXAPRO10 MG PO
[2018-01-07] MEDS ORDERED: TYLENOL WITH C1 EACH PO (18:36)
[2018-01-07] MEDS ORDERED: ZOFRAN4 MG PO (18:36)
[2018-01-07 19:01] VITALS: BP 125/95
== END 2018-01-07 19:02 | disposition home or self-care (01) ==
LOC: EME 16:52
DX: G89.29 Other chronic pain (principal); M54.5 Low back pain; I10 Essential (primary) hypertension; E78.5 Hyperlipidemia, unspecified; E11.9 Type 2 diabetes mellitus without complications; Z79.84 Long term (current) use of oral hypoglycemic drugs; Z86.711 Personal history of pulmonary embolism; Z86.718 Personal history of other venous thrombosis and embolism; Z79.01 Long term (current) use of anticoagulants
CPT/HCPCS: 99281; 99283; J3010; J8540